=== PATIENT | female | born 1950 ===

== ENCOUNTER → 2018-06-23 | Outpatient (CLI) | payer OTHER ==
--- NOTE | 2018-06-23 13:27 | DIAGNOSTIC IMAGING REPORT ---
R PELVIS/UNILATERAL HIP 2-3VIEWS CLINICAL HISTORY: Right hip pain. COMPARISON: None FINDINGS: Sacroiliac joints and symphysis pubis are intact. Numerous calcifications within the pelvis are incidentally noted. Note is made of moderate joint space narrowing and osteophytosis of the right hip. There is associated sclerosis. There is mild joint space narrowing and osteophytosis of the left hip. No fracture or suspicious lesion is present. There is no radiographic evidence for avascular necrosis of the femoral heads. IMPRESSION: 1. Moderate to severe osteoarthritis of the right hip. 2. Mild osteoarthritis of the left hip. Electronically signed by: Ad Johnson M.D. 06/23/2018 1:26 PM Dictated Date/Time: 06/23/2018 1:25 PM
--- NOTE | 2018-06-23 13:28 | DIAGNOSTIC IMAGING REPORT ---
SHOULDER MIN 2 VIEWS ROUTINE HISTORY: 67 years-old Female L SHOULDER PAIN acute left shoulder pain COMPARISON: None available TECHNIQUE: 3 views of the left shoulder FINDINGS: Mild osteoarthritis of the glenohumeral and AC joints. There is no acute fracture, dislocation or opaque foreign body. Imaged lung otero appear clear. IMPRESSION: No acute fracture or dislocation. The above report was generated using voice recognition software. It may contain grammatical, syntax or spelling errors. Electronically signed by: Cameron Gavin M.D. 06/23/2018 1:26 PM Dictated Date/Time: 06/23/2018 1:25 PM
--- NOTE | 2018-06-23 13:30 | DIAGNOSTIC IMAGING REPORT ---
FOOT MIN 3 VIEWS ROUTINE HISTORY: 67 years-old Female R FOOT PAIN acute right foot pain COMPARISON: None available TECHNIQUE: 3 views of the right foot FINDINGS: Moderate osteoarthritis about the first MTP joint with mild soft tissue prominence. There are at least mild degenerative changes throughout the interphalangeal joints. Type III accessory navicular. Bones appear mildly demineralized. No acute fracture, dislocation or stress fracture. Soft tissues are within normal limits. IMPRESSION: 1. No acute fracture or dislocation. 2. Moderate osteoarthritis of the first MTP joint with mild soft tissue swelling. The above report was generated using voice recognition software. It may contain grammatical, syntax or spelling errors. Electronically signed by: Cameron Gavin M.D. 06/23/2018 1:29 PM Dictated Date/Time: 06/23/2018 1:27 PM
== END | disposition home or self-care (01) ==
LOC: C.RAD1850 13:14
PROVIDERS: ATTEND Nurse Practitioner Family
DX: M25.551 Pain in right hip (principal); M79.671 Pain in right foot; M25.512 Pain in left shoulder